=== PATIENT | female | born 1985 | race Caucasian/White ===

== ENCOUNTER 2018-01-30 16:58 | Emergency (ER) | payer OTHER ==
--- NOTE | 2018-01-30 17:51 | EDPHY ---
H & P Stated Complaint: r back pain sciatic to buttock and r leg /r leg numb and weak Time Seen by Provider: 01/30/18 17:14 HPI/ROS: CHIEF COMPLAINT: Right buttock pain, right lower extremity weakness and numbness HISTORY OF PRESENT ILLNESS: 22-year-old female presents with right buttock pain. Onset of low back pain 2 weeks ago. Pain is moderate to severe, depending on her position. The pain has migrated to the right buttock and radiates down the right lower extremity. One-day history of right lower extremity weakness and a tingling sensation in her foot. In the past 2 weeks, she has seen a chiropractor several times and has had her back manipulated on each visit. She received dry needling yesterday. She has also seen her primary care physician twice in the past 2 weeks. No known recent back injury. No fever. REVIEW OF SYSTEMS: complete 10 point ROS reviewed and is negative except for the noted elements in the HPI - Personal History LMP (Females 10-55): 22-28 Days Ago Current Tetanus Diphtheria and Acellular Pertussis (TDAP): No - Medical/Surgical History Hx Asthma: No Hx Chronic Respiratory Disease: No Hx Diabetes: No Hx Cardiac Disease: No Hx Renal Disease: No Hx Cirrhosis: No Hx Alcoholism: No Hx HIV/AIDS: No Hx Splenectomy or Spleen Trauma: No Other PMH: denies - Social History Smoking Status: Never smoked - Physical Exam Exam: General Appearance: Alert, pleasant Eyes: Pupils equal and round, no conjunctival pallor or injection ENT, Mouth: Mucous membranes moist Neck: Normal inspection Respiratory: Lungs are clear to auscultation Cardiovascular: Regular rate and rhythm Gastrointestinal: Abdomen is soft and nontender Back: Normal inspection, no midline tenderness, tenderness over the right buttock Neurological: A&O, motor 5/5 including dorsiflexion of the 1st toe and ankle, patellar DTRs 2+ bilaterally, slow and steady gait Skin: Warm and dry Extremities: Positive straight leg raise on the right Psychiatric: Mood and affect normal Constitutional: Initial Vital Signs Temperature (C) 36.5 C 01/30/18 17:10 Heart Rate 119 H 01/30/18 17:10 Respiratory Rate 19 01/30/18 17:10 Blood Pressure 171/94 H 01/30/18 17:10 O2 Sat (%) 96 01/30/18 17:10 O2 Delivery Mode Room Air Allergies/Adverse Reactions: codeine Allergy (Verified 01/30/18 17:10) Home Medications: Medication Instructions Recorded Diazepam [Valium 5 MG (*)] 5 mg PO Q6 PRN #15 tab 01/30/18 Gabapentin [Neurontin 300 MG (*)] 300 mg PO HS #30 cap 01/30/18 Lexapro 01/30/18 methylPREDNISolone [Medrol Dose 1 each PO AD #1 ea 01/30/18 Johan] Medical Decision Making - Diagnostics Imaging Results: Imaging Impressions Lumbar Spine MRI 01/30/18 17:36 Impression: 1. 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 2. See above report for findings at specific levels. Results called and discussed with RADHA HUERTA M.D. on 01/30/2018 at 19:00. Imaging: Discussed imaging studies w/ manager call center Radiologist, I viewed and interpreted images myself ED Course/Re-evaluation: This patient presents with sciatica. Neurologic exam is normal. I do not detect weakness or change in sensation on exam. Will obtain MRI of the low back for further evaluation. MRI results discussed with the patient. Dr. Fine was consulted. Advises Medrol Dosepak, Valium and gabapentin. Will follow up with the patient in the office next week. Warning signs discussed. The patient will call the office or return to the emergency department for worsening symptoms. Differential Diagnosis: Differential diagnosis for back pain includes muscular pain, herniated disc, epidural abscess, discitis, spine fracture, intra-abdominal causes and urinary tract infection. Departure - Departure Disposition: Home, Routine, Self-Care Clinical Impression: Sciatica Condition: Good Instructions: Sciatica (ED) Additional Instructions: Ibuprofen 600 mg 3 times daily while the pain persists. Referrals: Flor Valerio MD [Medical Doctor] - As per Instructions Jose Romero MD [Medical Doctor] - As per Instructions (Call Dr. Romero tomorrow and tell his office staff that I talked with Dr. Heather tran. He wants to see you in his office next week.) Prescriptions: Diazepam [Valium 5 MG (*)] 5 mg PO Q6 PRN #15 tab PRN Reason: muscle spasm Gabapentin [Neurontin 300 MG (*)] 300 mg PO HS #30 cap methylPREDNISolone [Medrol Dose Johan] 1 each PO AD #1 ea
[2018-01-30 19:32] VITALS: BP 104/74
== END 2018-01-30 19:31 | disposition home or self-care (01) ==
LOC: MERGE 16:58 → EDBD 16:58
DX: M51.26 Other intervertebral disc displacement, lumbar region (principal); M48.062 Spinal stenosis, lumbar region with neurogenic claudication

== ENCOUNTER → 2018-07-31 | Outpatient (CLI) | payer OTHER | LOC: FIMAGING 09:20 ==